=== PATIENT | female | born 2000 | race Caucasian/White ===

== ENCOUNTER 2019-09-19 08:48 | Emergency (ER) | payer BC ==
[~2019-09-19] VITALS: Ht 160 cm; Wt 63.6 kg
[2019-09-19 08:55] VITALS: TEMP 97.6
[2019-09-19] MEDS ORDERED: DITROPAN 5MG TAB5 MG PO (09:02)
[2019-09-19 10:16] VITALS: BP 134/83; PULSE 82
== END 2019-09-19 10:05 | disposition home or self-care (01) ==
LOC: COL.ER 08:48
DX: R04.0 Epistaxis (principal)